=== PATIENT | male | born 1995 | race Caucasian/White ===

== ENCOUNTER 2017-11-17 10:43 | Day surgery (SDC) | payer OTHER, BC ==
--- NOTE | 2017-11-16 20:51 | PDGENHP ---
History and Physical - Chief Complaint Right Hamstring Pain - History of Present Illness 1. ~~RIGHT Hamstring avulsion; Chronic, multiple bony fragment 2. ~~Bilateral~Femoroacetabular impingement (CARINE) Cam type, with~resultant labral tear; currently minimally symptomatic HISTORY OF PRESENT ILLNESS: Radhais a 21 y.o.~very ~active male~who I have had the pleasure to consult on today. I have enjoyed meeting him. He~lives in [place]. 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 ~He~is single; he~has no~children. ~Radha enjoys running, snowboard, and lifting weights. Deb's right~hip pain~started in 2008 at age 12, after running sustaining~a hamstring avulsion fracture, and with no~previous complaints. Radhadoes not have ~a known history of hip dysplasia. Presentation today is of anterior, posterior, lateral right~hip pain. ~The hip does not~wake him~at night and does~click and catch on him. Sitting can be uncomfortable~for him. Radhadoes~report suffering from lower back pain episodes. He was found to have lymph nodes in his RIGHT inguinal canal and has been worked up for this. Deb~has~participated in physical therapy and has~tried other conservative measures including chiropractic treatments. He~has not~received sufficient symptomatic improvement. Radhahas~utilized medication for pain management, including NSAID. Radhahas used medication for the last couple months. Radhadenies issues with the left~hip BUT SAYS HE HAS HAMSTRING ISSUES on LEFT SIDE. Radhaunderstands that he~has a hip and pelvis problem which should be researched and wishes to get a better understanding of his~hip status, followed by an establishment of a treatment strategy, hoping he~would be able to get back to his~well being active life. History: Past medical history: ~ None which is relevant Relevant familial history: None which is relevant Past surgical history: None Radhahas never received general anesthesia. I have reviewed, verified and agree with the past medical, surgical, family and social history. Current Medications:~has a current medication list which includes the following prescription(s): ibuprofen. ALLERGIES:~has No Known Allergies. Objective: Physical Examination: Radhais 5~feet 10~inches tall and weighs 195~Lbs. Deb~is AAO x3; he~is well- nourished, in NAD. Skin is warm and dry. ~Breathing is non-labored. ~CV with RRR by pulse. Abdomen is soft, NTND. Currently, he~walks with a abnormal antalgic~gait, favoring LEFT leg. Trendelenburg sign is negative~and proprioception is normal, both~sides. He~presents with no~signs of joint laxity. Beightons Score: 0 Lower spine examination is negative~for sciatic or femoral nerve irritation with negative~SLR &~femoral stretch tests. Range of motion of the spine is normal~for flexion, extension, and rotations, with no~associated pain. Strength, Sensation and pulses are normal - bilaterally Ankles and knees exams are normal~and no~mal-alignment is evident. He~has no leg length discrepancy. Thigh circumference is symmetric~with no evidence for muscle atrophy~on both~ sides. Hip ROM (degrees): FL ER At 90~hip FL IR At 90~hip FL AB AD EX IR Neutral hip ER Neutral hip R 105 50 10 35 5 10 15 45 L 100 45 7 30 5 10 15 40 Specific hip and pelvis tests: Impingement Test BECKI Roll Add. Longus R ++ ++ Negative + L Negative Negative Negative Negative Glut. Med ITB Posterior Imp R Negative 5/5 strength Negative 5/5 strength Negative L Negative 5/5 strength Negative 5/5 strength Negative Squeeze test measured normal Bony Symphysis pubis is pain free~to touch while concentric activity of the rectus abdominis, does not~produce pain at its insertion. Ilio Psos specific tests are negative for pain during cycling for both hips~no snap. HF has good strength, some pain ~the right hip. Greater trochanteric burse is pain free~on both hips. Piriformis tests: FAIR is negative, with no~local signs of neuritis related to sciatic nerve. SIJs examination is normal~with normal~BECKI in relation and local tenderness. Hamstrings~tests are negative~functional contraction and positive~tendinopathy the right hip. On a daily basis, the following percentages reflect Deb's overall total pain: Deep hip: 10% Right Hamstring insertion: 90% Imaging: Radiology studies which I have personally reviewed, analyzed and measured are below: XR: AP of the hip and pelvis: Performed in a good~technique Coccyx at level of~pubic symphysis 0~degrees [place] Lines are preserved. Minimal~Pathological signs are seen in the Symphysis Pubis. Signs of multiple bone fragments post apophysis avulsion are seen at the Ischial tuberosity. ~ Specific measurements show: NSA~ LCE Sourcil~Angle Sharp's angle Lat. Cam Lat. Pincer C.Over~sign Head~Coverage % ATDmm R N 35 2 38 + - 12-12:30 N N L N 37 4 38 + - 12-12:30 N N Pos. wall sign ISS NAD ~~Dysplasia Comments R Negative Negative 13.2~mm Negative L Negative Negative 17~mm Negative Sclerosis Sup. Lat. OA Cysts Joint Space-WBZ Joint Space-Medial R Negative Negative Negative 4.2~mm 4.2~mm L Negative Negative Negative 4.3~mm 3.3~mm X Table lateral: Anterior cam lesion is seen~on both hips. Alpha Angle: ~ Right 73~dergrees Left 62~degrees Impression and plan: ~ Radhais a 21 y.o.~active male~suffering from symptomatic Right~hip pain due to Right Hamstring avulsion~causing significant disability to him~and altering his~ sport and life activities. Physical examination, imaging, and his~story correspond with the diagnosis mentioned above. I have explained the diagnosis and its significance to Radhaand we have discussed the various possible treatment options and their implications with him. These include proceeding with conservative treatment while continuing to modify his~activities to avoid aggravating the hamstrings further and resuming pain medications or PRP injections (when needed) which can give temporary relief or surgical repair. We discussed in length the various aspects of the procedure including possible complications, and with regards to the fact the sciatic nerve may be scarred up to the tendons and will require delicate neurolysis. Radhawill review the info presented. In order to obtain more detailed information regarding the alignment, orientation, and shape of the bony hip and pelvis I will order a CT scan to be performed. The results of the CT scan, including femoral torsion and acetabular version measured values and 3D images, will aid me in deciding on the best treatment strategy and surgical pre-planning. In order to better evaluate the soft tissues and cartilage of the hip joint,~ and the quality and tear location of hamstrings tendons,~I will order an MRI scan. Deb~will contact us if he~wishes to pursue further treatment in the future. Deb~is happy with this plan. I have also supplied him~with handouts, outlining the expected surgical treatment and rehab involved. I wish~Radhaall the best, ~~ Cesar Ricks, PAC History Information - Allergies/Home Medication List Allergies/Adverse Reactions: No Known Allergies Allergy (Verified 10/28/17 11:06) I have personally reviewed and updated: medical history - Social History Smoking Status: Never smoked Review of Systems Review of Systems: Physical Exam Physical Exam:
[2017-11-17] MEDS ORDERED: ACETAMINOPHEN 500 MG TAB PO ONE (11:12)
[2017-11-17] MEDS ORDERED: ceFAZolin 2 GM/SWFI 2 GM/20 ML SYR IVP ONE (11:12)
[2017-11-17] MEDS ORDERED: LR 1,000 ML IV ONE (11:12)
[2017-11-17] MEDS ORDERED: PREGABALIN 150 MG CAP PO ONE (11:12)
[2017-11-17 11:27] VITALS: PULSE 65
[2017-11-17] MEDS ORDERED: BUPIVACAINE 0.25% 30 ML SDV ONE ×2 (11:31→15:43)
[2017-11-17] MEDS ORDERED: MIDAZOLAM 2 MG/2 ML VIAL IVP ONE (14:19)
--- NOTE | 2017-11-17 14:20 | PDANEPAE ---
ANE History of Present Illness Patient presents for hamstring tendon repair ANE Past Medical History - Cardiovascular History Hx Hypertension: No Hx Arrhythmias: No Hx Chest Pain: No Hx Coronary Artery / Peripheral Vascular Disease: No Hx CHF / Valvular Disease: No Hx Palpitations: No - Pulmonary History Hx COPD: No Hx Asthma/Reactive Airway Disease: No Hx Recent Upper Respiratory Infection: No Hx Oxygen in Use at Home: No Hx Sleep Apnea: No Sleep Apnea Screening Result - Last Documented: Negative - Neurologic History Hx Cerebrovascular Accident: No Hx Seizures: No Hx Dementia: No - Endocrine History Hx Diabetes: No - Renal History Hx Renal Disorders: No - Liver History Hx Hepatic Disorders: No - Neurological & Psychiatric Hx Hx Neurological and Psychiatric Disorders: No - Cancer History Hx Cancer: No - Congenital Disorder History Hx Congenital Disorders: No - GI History Hx Gastrointestinal Disorders: No - Other Health History Other Health History: none - Chronic Pain History Chronic Pain: No - Surgical History Prior Surgeries: none ANE Review of Systems Review of Systems: - Exercise capacity METS (RN): 6 METS ANE Patient History - Allergies Allergies/Adverse Reactions: No Known Allergies Allergy (Verified 10/28/17 11:06) - Home Medications Home medications: home medication list seen and reviewed - NPO status NPO Status: no food or drink >8 hours NPO Since - Liquids (Date): 11/16/17 NPO Since - Liquids (Time): 22:00 NPO Since - Solids (Date): 11/16/17 NPO Since - Solids (Time): 20:30 - Anes Hx Anes Hx: no prior problems - Smoking Hx Smoking Status: Never smoked - Family Anes Hx Family Hx Anesthesia Complications: none ANE Labs/Vital Signs - Vital Signs Blood Pressure: 126/77 Heart Rate: 65 Respiratory Rate: 16 O2 Sat (%): 99 Height: 177.8 cm Weight: 88.451 kg ANE Physical Exam - Airway Neck exam: FROM Mallampati Score: Class 2 Mouth exam: normal dental/mouth exam, poor dentition - Pulmonary Pulmonary: no respiratory distress - Cardiovascular Cardiovascular: regular rate and rhythym - ASA Status ASA Status: I ANE Anesthesia Plan Anesthesia Plan: general endotracheal anesthesia (RBA discussed)
[2017-11-17] MEDS ORDERED: NS 500 ML IV PRN (15:42)
[2017-11-17] MEDS ORDERED: DEXAMETHASONE 4 MG/ML VIAL IVP PRN (15:42)
[2017-11-17] MEDS ORDERED: ALBUTEROL 3 ML DEYVIAL IH PRN (15:42)
[2017-11-17] MEDS ORDERED: PROMETHAZINE HCL 25 MG/ML INJ IVP PRN (15:42)
[2017-11-17] MEDS ORDERED: NALOXONE HCL 0.4 MG/ML INJ IVP PRN ×2 (15:42→21:22)
[2017-11-17] MEDS ORDERED: ONDANSETRON 4 MG/2 ML VIAL IVP PRN (15:42)
[2017-11-17] MEDS ORDERED: fentaNYL 100 MCG/2 ML INJ ONE ×4 (15:51→20:54)
[2017-11-17] MEDS ORDERED: PROPOFOL/EMULSION 500 MG/50 ML BOTTLE IV ONE (15:53)
[2017-11-17] MEDS ORDERED: PROPOFOL 200 MG/20 ML VIAL ONE ×2 (16:58→20:09)
--- NOTE | 2017-11-17 20:33 | POSTANESTH ---
Post Anesthetic Evaluation Cardiovascular Status: Normal, Stable Respiratory Status: Normal, Stable Level of Consciousness/Mental Status: Can Participate in Eval Pain Control: Adequate, Prn Tx Ordered Nausea/Vomiting Control: Adequate, Prn Tx Ordered Complications Possibly Related to Anesthesia: None Noted
[2017-11-17] MEDS ORDERED: HYDROmorphONE/DILAUDID 1 MG/ML INJ ONE (20:54)
[2017-11-17] MEDS: HYDROmorphONE/DILAUDID 1 MG/ML INJ IVP PRN ×3 (20:58→21:34)
[2017-11-17] MEDS: fentaNYL 100 MCG/2 ML INJ IVP PRN ×2 (20:58→21:13)
[2017-11-17] MEDS ORDERED: HYDROCODONE/APAP 5/325 TAB PO PRN (21:22)
[2017-11-17] MEDS ORDERED: OXYCODONE/APAP 5/325 TAB PO PRN (21:22)
[2017-11-17 21:43] VITALS: RESP 12
[2017-11-17] MEDS ORDERED: OXYCODONE/APAP 5/325 TAB ONE (22:20)
[2017-11-17] MEDS ORDERED: ONDANSETRON 4 MG/2 ML VIAL ONE (22:24)
[2017-11-17 23:30] VITALS: BP 120/66; TEMP 99
[2017-11-17 23:37] VITALS: O2SAT 93
== END 2017-11-17 23:23 | disposition home or self-care (01) ==
LOC: FSGY 10:43
PROVIDERS: ATTEND Orthopaedic Surgery Sports Medicine
PROC: 0LQM0ZZ Repair Left Upper Leg Tendon, Open Approach (ICD-10-PCS; principal; 2017-11-17 12:15)
PROC: 0LCM0ZZ Extirpation of Matter from Left Upper Leg Tendon, Open Approach (ICD-10-PCS; principal; 2017-11-17 12:15)
DX: S76.312A Strain of muscle, fascia and tendon of the posterior muscle group at thigh level, left thigh, initial encounter (principal); X50.3XXA Overexertion from repetitive movements, initial encounter; Y93.02 Activity, running; Y92.9 Unspecified place or not applicable; Y99.8 Other external cause status
CPT/HCPCS: C1713; J0171; J0690; J1170; J2250; J2405; J2704; J3010; L1832